=== PATIENT | male | born 1970 | race African-American/Black ===

== ENCOUNTER 2024-09-24 15:37 | Emergency (ER) | payer OTHER, SELFPAY ==
--- NOTE | ~2024-09-24 | XR_ITS ---
EXAMINATION: XR abdomen gastric tube insert DATE: 09/24/2024 16:49 INDICATION: Gastrostomy tube placement. TECHNIQUE: A supine view of the abdomen was obtained. COMPARISON: None. FINDINGS: There are no dilated loops of bowel. The gastrostomy tube is in expected position. There is contrast in the tube and in the stomach and duodenum. IMPRESSION: 1. Gastrostomy tube in expected position. Reviewed, dictated and finalized at location A. ING WHEEL INSPECTOR
[2024-09-24 15:34] VITALS: BP 171/104; PULSE 85; RESP 17; TEMP 37.1; O2SAT 98
--- OUTSIDE RECORDS SUMMARY | 2024-09-24 16:10 | XMS_ITS | CONTINUITY OF CARE DOCUMENT ---
Author Name katerinjerrodmedina Address Unknown Organization [facility] Address [address] [place] [address] Phone [phone] Care Team Providers Care Limnologist Name Role Phone Arley LYLE, Jovanni Fithc Unavailable [phone] JAN LLANOS MD Unavailable [phone] JAN LLANOS MD Unavailable [phone] INSURANCE PROVIDERS Payer name Policy type / Coverage type [place] red green party ID HEALTHCARE AND FAMILY SERVICES Medicaid 4 [id number]
--- NOTE | 2024-09-24 16:11 | ED_ITS ---
HPI - General Adult General Chief complaint: Recheck/Abnormal Lab/Rx Stated complaint: pulled out gtube Time Seen by Provider: 09/24/24 16:01 History of Present Illness HPI narrative: Patient is a 54-year-old male who presents ER after having his G-tube dislodged while transferring. Occurred in last hour. Patient is able to speak. Reports he is working on eating but still gets feeds. No pain. No complaints. Review of Systems Constitutional: Constitutional: Reports no additional constitutional complaints Gastrointestinal: Gastrointestinal: Reports no additional gastrointestinal complaints PMF Past Medical History Medical History (Updated 09/24/24 @ 16:16 by Regan Herman MD) Hypertension Diabetes Gastrostomy tube in place CVA (cerebral vascular accident) Exam Narrative: GENERAL: Chronically ill-appearing, well-nourished, and in no acute distress. HEAD: Normocephalic, atraumatic. ENT: Mucous membranes moist. CHEST: Clear to auscultation. No respiratory distress. HEART: Regular rate and rhythm. Normal peripheral pulses. ABDOMEN: Soft, nontender, fresh blood at G-tube site. EXTREMITIES: Upper and lower extremity contractures. NEURO: Alert and oriented x3. PSYCH: Normal mood and affect. Course Course Emergency Course: G-tube placed without issue. Positioning confirmed. Discharge back to the senior care. Vital Signs Vital signs: Vital Signs Temperature 98.7 F 09/24/24 15:34 Pulse Rate 85 09/24/24 15:34 Respiratory Rate 17 09/24/24 15:34 Blood Pressure 171/104 H 09/24/24 15:34 Pulse Oximetry 98 09/24/24 15:34 Oxygen Delivery Room Air 09/24/24 15:34 Temperature 98.7 F 09/24/24 15:34 Pulse Rate 85 09/24/24 15:34 Respiratory Rate 17 09/24/24 15:34 Blood Pressure 171/104 H 09/24/24 15:34 Pulse Oximetry 98 09/24/24 15:34 Oxygen Delivery Room Air 09/24/24 15:34 Procedures Feeding Tube Replacement Feeding Tube #1: Feeding Tube Placement Date: 09/24/24 Feeding Tube Placement Time: 16:11 Type of Tube: gastrostomy Insertion Site Prior to Procedure: clean Turkish Tube Size (F): 20 Balloon size (mL): 20 Verification of Placement: KUB and gastrografin injection Tube Secured by: attachment device Patient Tolerated Procedure: well Medical Decision Making Vital Signs Vital Signs: Vital Signs Temperature 98.7 F 09/24/24 15:34 Pulse Rate 85 09/24/24 15:34 Respiratory Rate 17 09/24/24 15:34 Blood Pressure 171/104 H 09/24/24 15:34 Pulse Oximetry 98 09/24/24 15:34 Oxygen Delivery Room Air 09/24/24 15:34 Temperature 98.7 F 09/24/24 15:34 Pulse Rate 85 09/24/24 15:34 Respiratory Rate 17 09/24/24 15:34 Blood Pressure 171/104 H 09/24/24 15:34 Pulse Oximetry 98 09/24/24 15:34 Oxygen Delivery Room Air 09/24/24 15:34 Imaging Data Radiologist's impression: ITS Impressions Abdomen X-Ray 09/24/24 16:51 IMPRESSION: 1. Gastrostomy tube in expected position. Discharge Plan Discharge Clinical Impression: Complication of feeding tube Patient Disposition: NH Half-Way/Asst Living Condition: Stable Additional Instructions: Return ER if you have dislodgement your feeding tube. Patient Language: Danish
--- OUTSIDE RECORDS SUMMARY | 2024-09-24 16:31 | XMS_ITS | CONTINUITY OF CARE DOCUMENT ---
Author Name katerinjerrodmedina Address Unknown Organization [facility] Address [address] [place] [address] Phone [phone] Care Team Providers Care Retail Leasing Agent Name Role Phone Arley LYLE, Jovanni Fitch Unavailable [phone] JAN LLANOS MD Unavailable [phone] JAN LLANOS MD Unavailable [phone] INSURANCE PROVIDERS Payer name Policy type / Coverage type [place] red constitution party ID HEALTHCARE AND FAMILY SERVICES Medicaid 4 [id number]
--- NOTE | 2024-09-24 17:07 | PC.NURSE ---
This nurse called half-way for report on the returning pt, no answer, no options for voice mail too.
== END 2024-09-24 19:53 ==
PROVIDERS: Emergency Provider Emergency Medicine; PCP Hospitalist
DX: Z43.1 Encounter for attention to gastrostomy (principal); I10 Essential (primary) hypertension; E11.9 Type 2 diabetes mellitus without complications; Z86.73 Personal history of transient ischemic attack (TIA), and cerebral infarction without residual deficits
CPT/HCPCS: 43762; 99283

== ENCOUNTER 2024-11-01 14:32 | Emergency (ER) | payer OTHER, SELFPAY ==
[2024-11-01 14:45] VITALS: BP 170/106; PULSE 105; RESP 20; TEMP 37.5; O2SAT 99
--- NOTE | 2024-11-01 15:15 | PC.NURSE ---
report given to GRANT Dobson
--- NOTE | 2024-11-01 15:30 | PC.NURSE ---
Attempted to contact wound care for consult. No answer at this time.
[2024-11-01 16:44] LABS: Add Urine Microscopic? YES; Appearance Urine Clear (Clear); Bacteria Urine None Seen /hpf; Bilirubin Urine Negative (Negative); Blood Urine Negative (Negative); Color Urine Yellow (Yellow); Glucose Urine UA Negative (Negative); Ketones Urine Negative (Negative); Leukocyte Esterase Ur Negative LEU/UL (Negative); Nitrate Urine Negative (Negative); Non Pathogenic Casts 0-2; Protein Urine 1+ mg/dL (Negative); RBC Urine 0-2 /hpf (0-2); Specific Grav Ur 1.019 (1.001-1.035); Squamous Epithelial Cell Urine None Seen /hpf (Few); WBC Urine 0-5 /hpf (0-3); pH Urine 7.5 (5.0-9.0)
--- NOTE | 2024-11-01 17:27 | ED_ITS ---
HPI - Wound/Laceration General Chief Complaint: Wound/Laceration Stated Complaint: coccyx wound Time Seen by Provider: 11/01/24 16:30 History of Present Illness HPI narrative: 54-year-old male with a past medical history including cerebrovascular accident, hypertension, diabetes. Patient is bedbound and receives care 247 at a nursing facility. For last 6 months he has been doing with the decubitus ulceration. Patient is DNR, DNI, comfort measures only per his signed long term p aperwork. Patient is awake alert oriented, states he has some pain near his ulceration and this facility was concerned that could be infected so they sent him here for evaluation. Patient denies any urinary complaints. 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 No falls or injury. Denies any fever chills. No chest pain shortness a breath. Patient tells me he has some intermittent issues with 1 of the aides at the facility and has reported the issue to the state and the medical director/head team physician. He otherwise feels safe at the facility. Related Data Allergies Allergy/AdvReac Type Severity Reaction Status Date / Time No Known Allergies Allergy Verified 11/01/24 14:50 Review of Systems Review of Systems: As reviewed above in HPI [facility] Past Medical History Medical History Hypertension Diabetes Gastrostomy tube in place CVA (cerebral vascular accident) Exam Narrative: GENERAL: Chronically ill-appearing, contracted, not any acute distress and awake and answering questions appropriately HEAD: [Normocephalic, atraumatic.] EYES: [PERRLA and EOMI.] ENT: Nares clear, no rhinorrhea or epistaxis. Mucous membranes moist. NECK: Supple. CHEST: [Clear to auscultation. No respiratory distress.] HEART: [Regular rate and rhythm]. No murmur heard. [Normal peripheral pulses.] ABDOMEN: [Soft, nondistended], [nontender], [No rigidity or guarding] EXTREMITIES: Bilateral lower extremity contractures, left BKA, no new injury. SKIN: Sacral decubitus ulceration stage IV, some granulation tissue on the periphery and redness but no overt purulence or drainage. No tenderness of palpation. Chronic appearing NEURO: Contracted with chronic deficits. Alert and oriented [x3.] PSYCH: [Normal mood and affect.] Course Vital Signs Vital signs: Vital Signs Temperature 37.5 C 11/01/24 14:45 Pulse Rate 105 H 11/01/24 14:45 Respiratory Rate 20 11/01/24 14:45 Blood Pressure 170/106 H 11/01/24 14:45 Pulse Oximetry 99 11/01/24 14:45 Oxygen Delivery Room Air 11/01/24 14:45 Temperature 37.5 C 11/01/24 14:45 Pulse Rate 105 H 11/01/24 14:45 Respiratory Rate 20 11/01/24 14:45 Blood Pressure 170/106 H 11/01/24 14:45 Pulse Oximetry 99 11/01/24 14:45 Oxygen Delivery Room Air 11/01/24 14:45 MDM - Wound/Laceration MDM Narrative Medical decision making narrative: 54-year-old male presenting from care facility for evaluation of wound to his coccyx. Patient has had a sacral decubitus ulcer for over 6 months according to the patient. He is awake alert oriented. He is DNR, DNI, comfort measures only. Facility sent him here for evaluation to see if it is infected. Patient otherwise at his baseline has no acute complaints aside from needing higher dos es of his pain medicine and does not think tramadol is helping him at the facility. Does not have any signs or symptoms of an active infection although he does have a stage IV decubitus ulcer that was cleaned and dressed here in the emergency department. Patient is comfort measures only and no aggressive workup/interventions are warranted or indicated, in line with his goals of care at this time. Will send the patient back to the facility for continued long term care after wound care here and patient will be placed on Bactrim and given higher dose of pain control medications for comfort. Patient provide Monument here in the emergency department and sent back to the facility with prescription for Bactrim and Monument. Medical Records Attestation: I reviewed the patient's medical records. Lab Data Attestation: I reviewed the patient's lab results. Labs: Lab Results 11/01/24 Range/Units 16:22 Urine Color Yellow (Yellow) Urine Appearance Clear (Clear) Urine pH 7.5 (5.0-9.0) Ur Specific Hall 1.019 (1.001-1.035) Urine Protein 1+ H (Negative) mg/dL Urine Glucose (UA) Negative (Negative) mg/dL Urine Ketones Negative (Negative) mg/dL Ur Blood (Man) Negative (Negative) Urine Nitrate Negative (Negative) Urine Bilirubin Negative (Negative) Urine Urobilinogen 1.0 (<2.0) mg/dL Leukocyte Esterase Rfl Negative (Negative) PARTH/UL Urine RBC 0-2 (0-2) /hpf Urine WBC 0-5 (0-3) /hpf Ur Squamous Epith Cells None seen (Few) /hpf Urine Bacteria None seen /hpf Urine Casts 0-2 Discharge Plan Discharge Clinical Impression: Comfort measures only status, Decubitus ulcer of sacral region, stage 4, History of CVA (cerebrovascular accident) Patient Disposition: NH Intermediate/Asst Living Condition: Stable Instructions: Antibiotic Form, Chronic Wounds (ED) Additional Instructions: You have a stage IV sacral ulcer that we cleaned and dressed here in the emergency department. Does not appear actively infected and there is some granulation tissue and redness around the margins. Will send you home with antibiotics and pain control regimen. Return with any new or worsening concerns or inability to achieve comfort at your facility. Patient Language: Malay Prescriptions: New sulfamethoxazole-trimethoprim [Bactrim DS] 800-160 mg tablet 1 tablet PO Q12H Qty: 14 0RF hydrocodone-acetaminophen 5-325 mg tablet 1 tablet PO Q8H PRN (Reason: pain) Qty: 14 0RF hydrocodone-acetaminophen 5-325 mg tablet 1 tablet PO Q8H PRN (Reason: pain) Qty: 14 0RF sulfamethoxazole-trimethoprim [Bactrim DS] 800-160 mg tablet 1 tablet PO Q12H Qty: 14 0RF Follow-up/Referrals: Adalid Smith MD [Primary Care Provider] - Stand Alone Forms: [facility] Discharge Time of Disposition: 17:44
--- OUTSIDE RECORDS SUMMARY | 2024-11-01 17:39 | XMS_ITS | Continuity of Care Document ---
Author Organization [facility] Address [address] [place] [address] Phone Care Team Providers Care Accounts Receivable Administrator Name Role Phone Cherelle Espana Unavailable Unavailable Advance Directives Directive Yes / No Effective Date File Name No Information Encounters Encounter Description Practice Location Reason(s) For Visit Diagnoses Date Provider Providers Copied on Encounter [email or web address], [address], [place], [place], [id number], tel:[phone] Yvonne ROUTINE MEDICAL EXAM Weston Villarreal. [address], [place], [place], [id number]. tel:[phone] Family History Family Member Type Diagnosis Age At Onset No Information Payers Payer name Insurance type Covered democrat ID Authoriza tion(s) No Information Social History Type Description Quantity Date Captured Comments Sex Male Smoking Status No Information Chief Complaint And Reason For Visit No Information Reason For Referral Reason For Referral No Information History Of Present Illness Encounter Date Complaint History Of Prese nt Illness No Information Functional Status Date Functional Assessmen t No Information Instructions Date Instruction Additional Infor mation No Information Assessments Type Assessment Date No Information Patient Care Teams Name Effective Dates (start - stop) Status Members No Information
--- OUTSIDE RECORDS SUMMARY | 2024-11-01 17:39 | XMS_ITS | CONTINUITY OF CARE DOCUMENT ---
Author Name katerinjerrodmedina Address Unknown Organization [facility] Address [address] [place] [address] Phone [phone] Care Team Providers Care Selling Manager Name Role Phone Arley LYLE, Jovanni Fitch Unavailable [phone] JAN LLANOS MD Unavailable JAN LLANOS MD Unavailable [phone] INSURANCE PROVIDERS Payer name Policy type / Coverage type [place] red green party ID HEALTHCARE AND FAMILY SERVICES Medicaid 4 [id number]
[2024-11-01] MEDS: SULFAMETHOXAZOLE/TRIMETHOPRIM 800/160 MG DS TABLET 1 TAB PO (17:57)
[2024-11-01] MEDS: HYDROcodone/acetaminophen (*CRX) 10-325 MG TABLET 1 TAB PO (17:57)
== END 2024-11-01 18:22 ==
PROVIDERS: Emergency Medicine; Emergency Provider Student in an Organized Health Care Education/Training Program; PCP Hospitalist
DX: L89.154 Pressure ulcer of sacral region, stage 4 (principal); Z51.5 Encounter for palliative care; I10 Essential (primary) hypertension; E11.9 Type 2 diabetes mellitus without complications; I69.398 Other sequelae of cerebral infarction; M62.40 Contracture of muscle, unspecified site; Z74.01 Bed confinement status; Z66 Do not resuscitate; Z93.1 Gastrostomy status; Z89.512 Acquired absence of left leg below knee
CPT/HCPCS: 81001; 96374; 99284; A9270